=== PATIENT | male | born 1945 | race Hispanic/Latino ===

== ENCOUNTER 2017-11-08 23:24 | Observation (INO) | payer MEDICARE ==
[2017-11-08 23:31] VITALS: BMI 24.7
--- NOTE | 2017-11-09 00:02 | ED PDOC ---
Arrival/HPI - General Chief Complaint: Shortness Of Breath Time Seen by Provider: 11/08/17 23:47 - History of Present Illness Narrative History of Present Illness (Text): 72 y/o M c PMHx HTN, HLD, Afib on warfarin, CHF p/w dyspnea on exertion x 2 weeks. Patient states he has difficulty breathing upon waking in the morning and must sit up and also with any type of exertion. Tonight, the patient was eating food and developed sudden swelling and pain of the L side of his face and went to [facility] ED where he was diagnosed with a salivary duct stone. While there, he was found to be hypertensive, tachycardic in Afib, with pleural effusion on CXR and was advised to be admitted but the patient did not wish to be admitted at [facility] and came to this ED instead. Patient denies chest pain, fever, vomiting. Facial swelling was improving prior to his arrival at [facility]. PMD [employer] Past Medical History - Cardiac Hx Atrial Fibrillation: Yes Hx Hypertension: Yes Hx Pacemaker: No - Pulmonary Hx Respiratory Disorders: No - Neurological Hx Paralysis: No - Endocrine/Metabolic Hx Diabetes Mellitus Type 2: Yes - Hematological/Oncological Hx Blood Disorders: No Hx Blood Transfusions: No Hx Blood Transfusion Reaction: No - Integumentary Hx Dermatological Disorder: No - Musculoskeletal/Rheumatological Hx Musculoskeletal Disorders: No - Gastrointestinal Hx Gastrointestinal Disorders: No - Genitourinary/Gynecological Hx Genitourinary Disorders: No - Psychiatric Hx Emotional Abuse: No Hx Physical Abuse: No Hx Substance Use: No - Anesthesia Hx Anesthesia Reactions: No Hx Malignant Hyperthermia: No - Suicidal Assessment Feels Threatened In Home Enviroment: No Family/Social History Family/Social History: No Known Family HX Smoking Status: Never Smoked Hx Alcohol Use: No Hx Substance Use: No Allergies/Home Meds Allergies/Adverse Reactions: Allergies Sulfa (Sulfonamide Antibiotics) Allergy (Intermediate, Verified 11/08/17 23:31) RASH NOTE- SWELLING OF HANDS NOTED ON PREVIOUS RECORD Home Medications: Home Meds Medication Instructions Recorded Confirmed [place] Hemifumarate [Tekturna] 300 mg PO QAM 06/25/12 11/08/17 Metformin HCl [Metformin HCl] 1,000 mg PO BID 06/25/12 11/08/17 Atorvastatin [Lipitor] 40 mg PO QAM 06/17/17 11/08/17 Carvedilol [Coreg] 3.125 mg PO QAM 06/17/17 11/08/17 GlipiZIDE [Glucotrol] 5 mg PO QAM 06/17/17 11/08/17 SITagliptin [Januvia] 100 mg PO BID 06/17/17 11/08/17 Warfarin [Coumadin] 2.5 mg PO QAM 06/17/17 11/08/17 Aliskiren [Tekturna] 300 mg PO DAILY 11/08/17 11/08/17 Review of Systems - Physician Review All systems were reviewed & negative as marked: Yes - Review of Systems Constitutional: absent: Fevers Cardiovascular: absent: Chest Pain Physical Exam - Physical Exam Narrative Physical Exam (Text): Gen: NAD Head: NC Eyes: PERRL ENT: MMM Neck: No JVD Chest: No deformity CV: Tachycardic Lungs: Decreased breath sounds at base Abd: Soft Back: No CVA tenderness Extremities: Mild pitting edema of lower extremities Skin: No rash Neuro: Alert, no focal deficit Vital Signs Temp Pulse Resp BP Pulse Ox 11/09/17 01:06 78 22 149/109 H 97 11/08/17 23:44 97.6 F 108 H 18 178/110 H 98 Medical Decision Making ED Course and Treatment: Plan: -- EKG -- Labs -- Chest X-ray -- Reassess and disposition Progress Notes: 11/09/17 00:18 CXR Impression: As read by me, bilateral congestion. EKG shows A-fib at [address] elevations. Interpreted by me. 11/09/17 01:[address] Corrales who is aware and agrees with the plan. Accepts patient into his service. - Lab Interpretations Lab Results: 11/08/17 23:55 11/08/17 23:55 Lab Results 11/08/17 23:55: Sodium 140, Potassium 4.1, Chloride 104, Carbon Dioxide 25, Anion Gap 16, BUN 26 H, Creatinine 0.8, Est GFR ( Amer) > 60, Est GFR ( Non-Af Amer) > 60, Random Glucose 167 H, Calcium 10.1, Total Bilirubin 1.6 H, AST 27, ALT 33, Alkaline Phosphatase 116, Total Creatine Kinase 72, Troponin I < 0.01, NT-Pro-B Natriuret Pep 1460 H, Total Protein 7.4, Albumin 4.3, Globulin 3.1, Albumin/Globulin Ratio 1.4 11/08/17 23:55: PT 23.9 H, INR 2.07 H, APTT 37.2 H 11/08/17 23:55: WBC 8.5, RBC 4.62, Hgb 13.0 L, Hct 38.0 L, MCV 82.3, MCH 28.1, MCHC 34.2, RDW 14.1, Plt Count 223, MPV 10.4, Gran % 57.6, Lymph % (Auto) 30.1, [place] % (Auto) 7.1 H, Eos % (Auto) 4.8, Baso % (Auto) 0.4, Gran # 4.91, Lymph # ( Auto) 2.6, [place] # (Auto) 0.6, Eos # (Auto) 0.4, Baso # (Auto) 0.03 - RAD Interpretation Radiology Orders: 11/08/17 23:48 CHEST PORTABLE [RAD] Stat - EKG Interpretation Interpreted by ED Physician: Yes Type: 12 lead EKG Disposition/Present on Arrival - Present on Arrival Any Indicators Present on Arrival: No History of DVT/PE: No History of Uncontrolled Diabetes: No Urinary Catheter: No History of Decub. Ulcer: No History Surgical Site Infection Following: None - Disposition Have Diagnosis and Disposition been Completed?: Yes Diagnosis: CHF exacerbation Disposition: HOSPITALIZED Disposition Time: 01:19 Patient Plan: Admission, Telemetry Condition: GUARDED
[2017-11-09 00:30] LABS: BASO # 0.03 K/mm3 (0.0-2.0); BASO % 0.4 % (0.0-3.0); EOS # 0.4 (0.0-0.7); EOS % 4.8 % (1.5-5.0); GRAN # 4.91 (1.4-6.5); GRAN % 57.6 % (50.0-68.0); LYMPH # 2.6 (1.2-3.4); LYMPH % 30.1 % (22.0-35.0); MEAN CELL VOLUME 82.3 fl (80.0-105.0); MEAN CORPUSCULAR HEMOGLOBIN 28.1 pg (25.0-35.0); MEAN CORPUSCULAR HGB CONC 34.2 g/dl (31.0-37.0); MEAN PLATELET VOLUME 10.4 fl (7.0-11.0); MONO # 0.6 (0.1-0.6); MONO % 7.1 % (1.0-6.0); RBC 4.62 10^6/uL (3.5-6.1); RED CELL DISTRIBUTION WIDTH 14.1 % (11.5-14.5); WHITE BLOOD COUNT 8.5 10^3/ul (4.5-11.0)
[2017-11-09 00:34] LABS: INR 2.07 (0.93-1.08); PARTIAL THROMBOPLASTIN TIME 37.2 Seconds (25.1-36.5); PROTHROMBIN TIME 23.9 SECONDS (9.4-12.5)
[2017-11-09 00:35] LABS: ALB/GLOB RATIO 1.4 (1.1-1.8); ALBUMIN 4.3 g/dL (3.0-4.8); ALT/SGPT 33 U/L (7-56); AST/SGOT 27 U/L (17-59); BLOOD UREA NITROGEN 26 mg/dL (7-21); CALCIUM 10.1 mg/dL (8.4-10.5); GFR AFRICAN-AMERICAN > 60; GFR NON-AFRICAN AMERICAN > 60
[2017-11-09 00:46] LABS: B-TYPE NATRIURETIC PEPTIDE 1460 pg/mL (0-450); TROPONIN I < 0.01 ng/mL
[2017-11-09 05:08] VITALS: RESP 20
[2017-11-09 06:52] VITALS: BP 149/91; TEMP 98.5; O2SAT 97
[2017-11-09] MEDS ORDERED: ALISKIREN HEMIFUMARATE 300 MG PO SCH (10:00)
--- NOTE | 2017-11-09 10:21 | RAD ---
HISTORY: dyspnea COMPARISON: No prior. FINDINGS: LUNGS: No active pulmonary disease. PLEURA: No significant pleural effusion identified, no pneumothorax apparent. CARDIOVASCULAR: No radiographic findings to suggest acute or significant cardiovascular disease. OSSEOUS STRUCTURES: No significant abnormalities. VISUALIZED UPPER ABDOMEN: Normal. OTHER FINDINGS: None. IMPRESSION: No active disease.
[2017-11-09 10:30] VITALS: PULSE 90
--- NOTE | 2017-11-09 13:25 | CON ---
DATE: 11/09/2017 CONSULTATION INDICATIONS: Shortness of breath, atrial fibrillation with rapid ventricular response. HISTORY OF PRESENT ILLNESS: This is a 72-year-old man, known to me with chronic AFib, who has experienced increased dyspnea for a couple of weeks. Yesterday, he developed swelling of the left side of his face and went to the [facility] where he was found to have possible salivary duct stone. While there, he was hypertensive and his heart rate was rapid with a pleural effusion on the chest x-ray apparently. He was advised to have admission and came to [facility] for admission. Chest x-ray here did not show pleural effusion. This morning, he is feeling better. There is no chest pain or shortness of breath. Vital signs are improved. Blood pressure 149/91. There is no orthopnea, PND, syncope, presyncope, lightheadedness, dizziness, vertigo, palpitations, edema, claudication, fever, chills, cough, sputum production, hemoptysis, abdominal pain, nausea, vomiting, diarrhea, constipation, melena. The facial swelling has improved as well. PAST MEDICAL HISTORY: Notable for atrial fibrillation and hypertension. He is on chronic Coumadin therapy. There is no history of rheumatic fever, myocardial infarction, angina, congestive heart failure, stroke, TIA, diabetes or gout. MEDICATIONS AT THE TIME OF ADMISSION: Include Coreg, warfarin, glipizide, Januvia, Lipitor, metformin, Tekturna. ALLERGIES: HE NOTES AN ALLERGY TO SULFA. SOCIAL HISTORY: He does not smoke. He does not drink alcohol significantly. He is employed. He is ambulatory. FAMILY HISTORY: Noncontributory. REVIEW OF SYSTEMS: Ten-point review of systems is otherwise unremarkable except as noted above. PHYSICAL EXAMINATION: GENERAL: He is a well-developed male, in no acute distress, sitting on his bed in telemetry. VITAL SIGNS: Notable for atrial fibrillation 87 beats per minute. He is afebrile, blood pressure 149/91, O2 sats 97%, respirations 20-22. HEENT: Reveals no neck vein distention, thyromegaly or carotid bruit. Mucous membranes moist. Conjunctivae pink. NECK: Supple. LUNGS: Lung pierson clear throughout. HEART: Examination of the heart revealed an irregular rhythm. Normal first and second heart sounds. ABDOMEN: Soft. Bowel sounds present. No mass, organomegaly, tenderness, rebound, guarding, CVA tenderness or palpable abdominal aortic aneurysm. EXTREMITIES: Revealed no cyanosis, clubbing or edema. NEUROLOGIC: He is awake, alert and oriented. SKIN: Warm and dry. No rash or cellulitis. PSYCHIATRIC: Normal as to mood and affect. LABORATORY AND IMAGING: His chest x-ray is not yet reported. It is a portable study. To me, there is no effusion, infiltrate or congestive heart failure. EKG demonstrates atrial fibrillation, moderate ventricular response. CBC is notable for normal white count, normal platelet count, hemoglobin 13, hematocrit 38. PT 23.9, INR 2.07, PTT 37.2. Electrolytes: BUN and creatinine unremarkable. Blood sugar 167, bilirubin 1.6. SGOT, SGPT, alk phos all normal. CK 72, troponin less than 0.01. BNP 1460. TSH is normal. IMPRESSION: Xavier Jacome is a 72-year-old man, admitted with a possible salivary duct stone, swelling of the left side of the face, which was transient, hypertension and tachycardia in the initial emergency room visit with pleural effusion, which is not substantiated by our chest x-ray. I discussed the case with Dr. Corrales. He can be out of bed and ambulate. I will continue his usual medications including Coreg, warfarin and Lipitor. He will continue Tekturna and his diabetic medications. Outpatient followup will be arranged. He will call if any recurrent symptoms occur. I will arrange an outpatient nuclear stress test for him to further evaluate dyspnea on exertion. Froilan Adame MD [facility]
--- NOTE | 2017-11-09 15:44 | CARD ---
APPROVED REPORT EKG Measurement Heart [id number] <Conclusion> Atrial fibrillation Abnormal ECG
--- NOTE | 2017-11-10 04:58 | HP ---
CHIEF COMPLAINT AND HISTORY OF PRESENT ILLNESS: This is a 72-year-old male who is coming into the hospital with complaints of shortness of breath. The patient states that he has been having shortness of breath on exertion for the past 2 weeks. He has a history of atrial fibrillation, he is on Coumadin. He has hypertension and dyslipidemia. He states that he has been waking up in the morning and was having shortness of breath with exertion. He says he has developed left-sided facial pain the day he came into the ER. He had gone to [facility] and was found to have a salivary ductal stone. The patient was found to be tachycardic, hypertensive, and it is stated that he had atrial fibrillation. The patient was admitted to the ER for further evaluation and management. He did not wish to go to [facility] and came into the ER at [place]. Patient denies any chest pain. He says he is not short of breath. He has no nausea, no vomiting, no abdominal pain, no dysuria or frequency. arms and the legs. He says he does have facial swelling in the left side of his face. Other than that, the review of symptoms have been negative. ALLERGIES: SULFA. HOME MEDICATIONS: Tekturna, metformin, Lipitor, Coreg, Glucotrol, Januvia, Coumadin. SOCIAL HISTORY: He does not smoke or drink. PAST MEDICAL HISTORY: As above, also: 1. Atrial fibrillation, on Coumadin. 2. Hypertension. FAMILY HISTORY: Noncontributory. PHYSICAL EXAMINATION: VITAL SIGNS: Temperature is 98.5, pulse of 87, blood pressure is 149/91, respirations 20, O2 sat is 97%, height is 5 feet 11, weight is 177 pounds, BMI is 24.7. GENERAL: The patient lying in bed, , and in no acute distress. HEENT: Atraumatic and normocephalic. Anicteric sclerae. Moist mucosa. [place] conjunctivae. No oral lesions. NECK: No JVD, anterior and posterior adenopathy, thyromegaly, or bruits. CARDIOVASCULAR: S1 and S2 regular. No murmur, rubs, or gallop. LUNGS: Clear to auscultation bilaterally. No wheezes, rales, or rhonchi. ABDOMEN: Bowel sounds are positive. Soft, nontender and nondistended. No hepatosplenomegaly. No rebound and no guarding. EXTREMITIES: No cyanosis, clubbing, or edema. NEUROLOGIC: No facial asymmetry. Tongue is midline. No uvula deviation. Power is 5/5 upper extremity and lower extremity. Sensation intact in upper extremity and lower extremity. PSYCHIATRIC: He is awake, alert and oriented x3. No anxiety or depression. He has normal affect. GENITOURINARY: No CVA tenderness. VASCULAR: 2+ pulses in the carotid pulses and pedal pulses. SKIN: No erythema or nodules. SPINE: Shows normal curvature. LABORATORY DATA: Reviewed, white count of 8.5, hemoglobin is 13. INR is 3.07. He had a chemistry that shows troponin is less than 0.01, proBNP is 1460. He had a chest x-ray done which shows no active disease. His EKG shows atrial fibrillation with moderate ventricular response. ASSESSMENT: 1. Shortness of breath, which has resolved. 2. Left salivary ductal stone. 3. Atrial fibrillation with rapid rate, now resolved. 4. Diabetes type 2. 5. Atrial fibrillation, on Coumadin. 6. Hypertension. 7. Dyslipidemia. PLAN: The patient is comfortable. He states he is not short of breath. He has a heart rate that is controlled. He is on his diabetes medications, these will be continued. He is on Coumadin, he is therapeutic. He was seen by Dr. Adame and is cleared for patient to be discharged home, follow up with Dr. Cervantes in 1 to 2 weeks and to follow up with Dr. Adame in 1 to 2 weeks. Daniel Corrales MD
== END 2017-11-09 12:36 | disposition home or self-care (01) ==
LOC: ED 23:24 → INTOOBSV 11-09 01:19 → ERH 11-09 01:19 → 2RNO 11-09 04:01
PROVIDERS: ADMIT Internal Medicine Nephrology; ATTEND Internal Medicine Nephrology
DX: I11.0 Hypertensive heart disease with heart failure (principal); I50.9 Heart failure, unspecified; K11.5 Sialolithiasis; I48.2 Chronic atrial fibrillation; E78.5 Hyperlipidemia, unspecified; E11.9 Type 2 diabetes mellitus without complications; R06.02 Shortness of breath; Z79.01 Long term (current) use of anticoagulants; Z88.2 Allergy status to sulfonamides; Z79.84 Long term (current) use of oral hypoglycemic drugs
CPT/HCPCS: 36415; 71045; 80053; 82550; 83880; 84443; 84484; 85025; 85610; 85730; 93005; 99285; G0378

== ENCOUNTER 2017-11-27 06:11 | Day surgery (SDC) | payer MEDICARE ==
[2017-11-22 09:36] VITALS: BMI 24.5
[2017-11-27 06:50] LABS: BASO # 0.05 K/mm3 (0.0-2.0); BASO % 0.6 % (0.0-3.0); EOS # 0.4 (0.0-0.7); EOS % 5.2 % (1.5-5.0); GRAN # 4.62 (1.4-6.5); HEMOGLOBIN 13.7 g/dL (14.0-18.0); LYMPH # 2.4 (1.2-3.4); LYMPH % 29.8 % (22.0-35.0); MEAN CELL VOLUME 82.9 fl (80.0-105.0); MEAN CORPUSCULAR HEMOGLOBIN 27.6 pg (25.0-35.0); MEAN CORPUSCULAR HGB CONC 33.3 g/dl (31.0-37.0); MEAN PLATELET VOLUME 10.5 fl (7.0-11.0); MONO # 0.6 (0.1-0.6); MONO % 7.4 % (1.0-6.0); RBC 4.96 10^6/uL (3.5-6.1); RED CELL DISTRIBUTION WIDTH 14.1 % (11.5-14.5); WHITE BLOOD COUNT 8.1 10^3/ul (4.5-11.0)
[2017-11-27 06:53] VITALS: TEMP 97.7
[2017-11-27] MEDS ORDERED: Lidocaine 2% Inj (20ml) ONE (07:04)
[2017-11-27] MEDS ORDERED: Phenylephrine 10 mg/ml Inj ONE (07:05)
[2017-11-27] MEDS ORDERED: Iohexol 350mgl/ml 50 ML ONE (07:05)
[2017-11-27 07:20] LABS: INR 1.2 (0.93-1.08); PARTIAL THROMBOPLASTIN TIME 28.2 Seconds (25.1-36.5); PROTHROMBIN TIME 13.8 SECONDS (9.4-12.5)
[2017-11-27 07:28] LABS: BLOOD UREA NITROGEN 21 mg/dL (7-21); CALCIUM 9.9 mg/dL (8.4-10.5); GFR AFRICAN-AMERICAN > 60; GFR NON-AFRICAN AMERICAN > 60
[2017-11-27 07:30] LABS: HDL CHOLESTEROL 48 mg/dL (29-60)
[2017-11-27] MEDS ORDERED: Iohexol 350 MG/100 ML VIAL ONE (07:33)
[2017-11-27 07:42] LABS: LDL CHOLESTEROL 70 mg/dL (0-129)
[2017-11-27] MEDS ORDERED: Midazolam 2 MG/2 ML VIAL ONE (07:47)
[2017-11-27] MEDS ORDERED: Sodium Chloride 0.9% 1,000 ML IV SCH (08:45)
[2017-11-27 09:47] VITALS: RESP 18; O2SAT 97
[2017-11-27 10:28] VITALS: BP 148/99; PULSE 98
--- NOTE | 2017-11-27 10:57 | CARDCATH ---
PROCEDURE DATE: 11/27/2017 PROCEDURES: 1. Left and right coronary angiography. 2. Right and left heart catheterization. 3. Right femoral arteriography. 4. Angio-Seal deployment. HISTORY: This is a 72-year-old man with recent congestive heart failure symptoms and a stress test showing evidence of severe LV dysfunction. He has a history of congestive cardiomyopathy in the past with improvement in his LV function and recent deterioration and cardiac catheterization was advised. INDICATION: As above. FINDINGS: HEMODYNAMICS: The right heart pressures were as follows. The RA mean pressure was 6. The RV pressure was 38/4. The PA pressure was 34/20 with a pulmonary capillary wedge pressure of 22. The cardiac output was 2.3 L/min by thermodilution method with a cardiac index of 1.2 L/min/m2. CORONARY ANATOMY: 1. The left mainstem was normal. 2. The left anterior descending artery and its branches had mild irregularities. The vessel was fairly large and wrapped around the apex. 3. Left circumflex artery gave rise to several small obtuse marginal branches. Mild diffuse disease was present. 4. The right coronary artery was large and dominant. This had mild irregularities. LEFT VENTRICULOGRAPHY: A Left ventriculogram performed in the DOMINIQUE projection reveals mildly increased LV size with evidence of moderately severe LV systolic dysfunction and little hypokinesis. Overall ejection fraction was 30%. The left ventricular end diastolic pressure was 22 mmHg. 1+ mitral regurgitation was noted. RIGHT FEMORAL ARTERIOGRAPHY: Right femoral arteriogram was performed in the PITER projection. This revealed no evidence of significant disease and appropriate level of arterial puncture. The puncture site was then closed with deployment of an Angio-Seal Device. CONCLUSION: 1. Mild coronary artery disease, nonobstructive. 2. Severe left ventricular systolic dysfunction. 3. Moderately elevated right heart pressures and pulmonary capillary wedge pressure. RECOMMENDATIONS: At this time, intensified medical therapy appears most appropriate. Diuretic therapy should be instituted and beta kee therapy intensified as tolerated. The resumption of anticoagulation will be planned. Mirza Olivera MD cc: Socrates Martinez MD
== END 2017-11-27 13:00 | disposition home or self-care (01) ==
LOC: CATH 06:11
PROVIDERS: ATTEND Internal Medicine Cardiovascular Disease
DX: I25.10 Atherosclerotic heart disease of native coronary artery without angina pectoris (principal); I42.0 Dilated cardiomyopathy; I11.0 Hypertensive heart disease with heart failure; I50.9 Heart failure, unspecified; I48.91 Unspecified atrial fibrillation
CPT/HCPCS: 36415; 80048; 80061; 85025; 85610; 85730; 86850; 86900; 93460; 99152; C1760; C1769 ×2; C1894; C2629; J0360; J1644; J2250; J2405; J3010; J7040 ×2; Q9967 ×2